=== PATIENT | female | born 1975 | race Caucasian/White ===

== ENCOUNTER → 2017-01-12 | Outpatient (CLI) | payer BC ==
--- NOTE | 2017-01-12 18:57 | Diagnostic Imaging Report ---
Bilateral screening mammogram 2D views with tomosynthesis. The current study was also evaluated with a Computer Aided Detection (CAD) system. INDICATION: Screening. No current complaints stated on the questionnaire. COMPARISON: 05/19/2012. FINDINGS: The breasts are composed of heterogeneously dense parenchyma which may decrease mammographic sensitivity. There is no mass, architectural distortion, or suspicious cluster of calcifications seen. Allowing for technique and positional differences, no suspicious change is seen. IMPRESSION: Dense breasts with no definite change. ACR BI-RADS Category 2: Benign findings. Result letter will be mailed to the patient. Note: At least 10% of breast cancer is not imaged by mammography. Dictated by: Dictated on workstation # [id number]
== END ==
LOC: RAD 09:35
PROVIDERS: ATTEND Nurse Practitioner
DX: Z12.31 Encounter for screening mammogram for malignant neoplasm of breast (principal)
CPT/HCPCS: 77067

== ENCOUNTER → 2017-01-25 | Outpatient (CLI) | payer BC | LOC: PREOP 05:40 | PROVIDERS: ATTEND Surgery | DX: Z01.818 Encounter for other preprocedural examination (principal); K62.5 Hemorrhage of anus and rectum ==

== ENCOUNTER 2017-01-28 06:36 | Day surgery (SDC) | payer BC ==
[~2017-01-28] VITALS: Ht 175.3 cm; Wt 103.4 kg
--- OUTSIDE RECORDS SUMMARY | 2017-01-28 06:39 | XMS REPORT ---
Author Author Edna Head [facility] Address [address] [place], [place] [id number] Care Team Providers Care Energy Technician Name Role Phone Euniceangyarmando Edna Hernandez PCP [phone] Eunicetuanluis fernandoEdnaMonisha PreferredProvider [phone] Allergies and Adverse Reactions Name Reaction Notes No known allergies Plan of Treatment Not available. Medications Active Name Start Date Estimated Completion Date SIG Comments Prilosec OTC 20 mg oral tablet,delayed release (DR/EC) take 1 tablet by oral route daily lisinopril 20 mg oral tablet take 1 tablet (20 mg) by oral route once daily Name Start Date Expiration Date SIG Comments neomycin-polymyxin B-dexameth 3.5mg/mL-10,000 unit/mL-0.1 % ophthalmic drops, suspension 04/28/2016 05/03/2016 INSTILL 2 GTTS LEFT EYE 3XD FOR 5DAYS Problem List Not available. Vital Signs Date Time BP-Sys(mm[Hg] BP-Eli(mm[Hg]) HR(bpm) RR(rpm) Temp WT HT HC BMI BSA BMI Percentile O2 Sat(%) 04/28/2016 2:36:00 PM 118 mmHg 68 mmHg 88 bpm 18 rpm 97.8 F 228.25 lbs 69 in 33.71 kg/m2 2.25 m2 98 % Social History Name Description Comments Tobacco Never smoker Alcohol Use - Rare History of Procedures Not available. Results Summary Not available. History Of Immunizations Not available. History of Past Illness Name Date of Onset Comments Acute bacterial conjunctivitis of left eye Apr 28 2016 2:37PM Corneal abrasion, left, initial encounter Apr 28 2016 2:37PM Payers Insurance Name Company Name Plan Name Plan Number Policy Number Policy Group Number [id number], 2016 [facility] [facility] [id number] N/A History of Encounters Visit Date Visit Type Provider 04/28/2016 Office visit Edna Head APPLICATION ARCHITECT MANAGER 01/02/2009 Laboratory Brandin Lew MD
--- OUTSIDE RECORDS SUMMARY | 2017-01-28 06:39 | XMS REPORT ---
Author Author Edna Head [facility] Address [address] [place], [place] [id number] Care Team Providers Care Laundry Operator Name Role Phone EunicetuanEdna gould PCP [phone] AdileneEdnaMonisha PreferredProvider [phone] Allergies and Adverse Reactions Name Reaction Notes No known allergies Plan of Treatment Not available. Medications Active Name Start Date Estimated Completion Date SIG Comments Prilosec OTC 20 mg oral tablet,delayed release (DR/EC) take 1 tablet by oral route daily lisinopril 20 mg oral tablet take 1 tablet (20 mg) by oral route once daily Toprol XL 25 mg oral tablet extended release 24 hr 05/11/2016 06/10/2016 take 1 tablet (25 mg) by oral route once daily for 30 days Name Start Date Expiration Date SIG Comments neomycin-polymyxin B-dexameth 3.5mg/mL-10,000 unit/mL-0.1 % ophthalmic drops, suspension 04/28/2016 05/03/2016 INSTILL 2 GTTS LEFT EYE 3XD FOR 5DAYS Problem List Description Status Onset Benign essential hypertension Active 06/06/2016 Vital Signs Date Time BP-Sys(mm[Hg] BP-Eli(mm[Hg]) HR(bpm) [...] Past Illness Name Date of Onset Comments Benign essential hypertension 06/06/2016 Acute bacterial conjunctivitis of left eye Apr 28 2016 2:37PM Corneal abrasion, left, initial encounter Apr 28 2016 2:37PM Benign essential hypertension Apr 28 2016 2:37PM Payers Insurance Name Company Name Plan Name Plan Number Policy Number Policy Group Number Start Date [id number] Friday, 2016 Preferred Health Care [facility] [id number] N/A History of Encounters Visit Date Visit Type Provider 04/28/2016 Office visit Edna Head FLOWER CHENILLER 01/02/2009 Laboratory Brandin Lew MD
--- OUTSIDE RECORDS SUMMARY | 2017-01-28 06:39 | XMS REPORT ---
Author Author Edna Head [facility] Address [address] [place], [place] [id number] Care Team Providers Care Music Supervisor Name Role Phone Edna Head PCP [phone] AdileneEdnaMonisha PreferredProvider [phone] Allergies and Adverse Reactions Name Reaction Notes [...] Number Policy Group Number Start Date [employer]BS [facility] [employer] [facility] [id number] Friday, 2016 Pref[employer] [id number] N/A History of Encounters Visit Date Visit Type Provider 04/28/2016 Office visit Edna Head TOPSTITCHER ZIGZAG 01/02/2009 Laboratory Brandin Lew MD
--- OUTSIDE RECORDS SUMMARY | 2017-01-28 06:39 | XMS REPORT | Continuity of Care Document ---
Author Author [facility] Organization [facility] Address Unknown Phone Unavailable Allergies Medications Problems Procedures Results Encounters ACCT No. Visit Date/Time Discharge Status Pt. Type Provider Facility Loc./Unit Complaint [id number] 12/30/2016 15:35:50 12/30/2016 23: 59:59 [facility] Outpatient Kierra Head [id number] 04/28/2016 14:49:53 04/28/2016 23: 59:59 [facility] Outpatient Kierra Head
--- OUTSIDE RECORDS SUMMARY | 2017-01-28 06:39 | XMS REPORT ---
Author Author Edna Head [facility] Address [address] [place], [place] [id number] Care Team Providers Care Rn Intern Name Role Phone Edna Head PCP [phone] Edna Head PreferredProvider [phone] Allergies and Adverse Reactions Name Reaction Notes No known allergies Plan of Treatment Not available. Medications Active Name Start Date Estimated Completion Date SIG Comments Prilosec OTC 20 mg oral tablet,delayed release (DR/EC) take 1 tablet by oral route daily Trintellix 10 mg oral tablet 06/16/2016 09/14/2016 take 1 tablet (10 mg) by oral route once daily at the same time each day for 30 days Benicar 20 mg oral tablet 06/16/2016 07/16/2016 take 1 tablet (20 mg) by oral route once daily for 30 days Name Start Date Expiration Date SIG Comments neomycin-polymyxin B-dexameth 3.5mg/mL-10,000 unit/mL-0.1 % ophthalmic drops, suspension 04/28/2016 05/03/2016 INSTILL 2 GTTS LEFT EYE 3XD FOR 5DAYS Toprol XL 25 mg oral tablet extended release 24 hr 05/11/2016 06/10/2016 take 1 tablet (25 mg) by oral route once daily for 30 days Discontinued Name Start Date Discontinued Date SIG Comments lisinopril 20 mg oral tablet 06/16/2016 take 1 tablet (20 mg) by oral route once daily Problem List Description Status Onset Benign essential [...] Benign essential hypertension Apr 28 2016 2:37PM HTN (hypertension), benign Jun 16 2016 11:57AM Anxiety disorder, unspecified Jun 16 2016 11:57AM Major depressive disorder, single episode, unspecified Jun 16 2016 11:57AM Payers Insurance Name Company Name Plan Name Plan Number Policy Number Policy Group Number Start Date [facility] [id number] Friday, 2016 [employer] [id number] N/A History of Encounters Visit Date Visit Type Provider 04/28/2016 Office visit Edna Head APRN 01/02/2009 Laboratory Brandin Lew MD
[2017-01-28] MEDS ORDERED: LACTATED RINGERS 1,000 ML IV STA (08:07)
[2017-01-28 08:28] VITALS: BP 129/88
[2017-01-28] MEDS ORDERED: OMEP20TA7 PO (08:51)
[2017-01-28] MEDS ORDERED: OLME20TA22 PO (08:51)
[2017-01-28] MEDS ORDERED: MIDAZOLAM 2 MG/2 ML (VERSED) VIAL ONE (09:15)
[2017-01-28] MEDS ORDERED: proPOfol 200 MG/20 ML (DIPRIVAN) VIAL IV ONE ×2 (09:15→09:27)
--- NOTE | 2017-01-28 09:25 | Progress Note-Pre Operative ---
Pre-Operative Progress Note H&P Reviewed The H&P was reviewed, patient examined and no changes noted. Time Seen by Provider: 09:23 Date H&P Reviewed: Jan 28, 2017 Time H&P Reviewed: 09:24 Pre-Operative Diagnosis: Rectal Bleed probably secondary to fissure, anal pain MING BRICE DO Jan 28, 2017 09:25
[2017-01-28 10:05] VITALS: BP 105/55
--- NOTE | 2017-01-28 10:08 | Progress Note-Post Operative ---
Post-Operative Progess Note Surgeon (s)/Aquaculture And Fisheries Professor (s) Surgeon MING BRICE DO Aquaculture And Fisheries Professor: none Pre-Operative Diagnosis Rectal Bleed probably secondary to fissure, anal pain Post-Operative Diagnosis Colon ulcer Diverticula internal hemorrhoids Anal fissure Procedure & Operative Findings Date of Procedure 01/28/17 Procedure Performed/Findings Colon with cold bx Anesthesia Type IV sedation by HTML WEB DEVELOPER Estimated Blood Loss Estimated blood loss (mL): scant Specimens/Packing Specimens Removed Descending colon bx MING BRICE DO Jan 28, 2017 10:08
--- NOTE | 2017-01-28 10:10 | Endoscopy Discharge Instruct ---
Endo Procedure/Findings Findings 1.: Other Findings (colon ulcer) 2.: Diverticulosis 3.: Internal Hemorrhoids 4.: Other Findings (Anal fissure) Discharge Instructions - Activity: You might feel a little sleepy until tomorrow. This is due to the medicine you received to relax you. Until tomorrow, you should: NOT drive a car, operate machinery or power tools. NOT drink any alcoholic beverages. NOT make any important decisions or sign importortant papers. Do not return to work until tomorrow, unless otherwise instructed. Resume previous activities tomorrow. Diet: Start by taking liquids. If you tolerate liquids, advance to solid food. make appointment for one week Instructions: 1.: Colonscopy in 10 years Notify Physician - If you experience excessive bleeding, unusual abdominal pain, fever, or chest pain, contact your doctor immediately. [phone] Follow-Up: - I have received and understand the above instructions and will call my doctor if I have any further questions. Patient Signature Date Nurse Signature Other (Relationship) MING BRICE DO Jan 28, 2017 10:10
[2017-01-28 10:35] VITALS: BP 119/77
[2017-01-28 11:08] VITALS: BP 119/77
--- NOTE | 2017-01-28 19:47 | OPERATIVE REPORT ---
DATE OF SERVICE: PREOPERATIVE DIAGNOSES: Anal pain, rectal bleed, possible fissures, hemorrhoids. POSTOPERATIVE DIAGNOSES: 1. Colon ulcer. 2. Diverticula. 3. Internal hemorrhoids. 4. Anal fissure. 5. Rectal bleed. PROCEDURE: Colonoscopy with cold biopsy. SURGEON: Dr. Pedraza. IRRIGATION MANAGER: None. ANESTHESIA: IV sedation by the BUNCH MAKER HAND. SPECIMEN: Biopsy of the colon ulcer. BLOOD LOSS: Scant. FLUIDS: Per anesthesia. POSTOPERATIVE CONDITION: Stable. INDICATION FOR PROCEDURE: The patient is a 41-year-old female who has been complaining of rectal pain and bleeding think she has fissures and possibly hemorrhoids and needed to get this worked up. FINDINGS: The patient had a colon ulcer in the descending colon. She also had some diverticula in the sigmoid and descending colon as well as a couple on the right side and looked like possibly around the cecal area, noted to have grade probably 1 to 2 internal hemorrhoids and anal fissure. PROCEDURE NOTE: After informed consent was obtained, the patient was brought to the endoscopy suite, placed in the bed in the left lateral decubitus position. She was administered IV sedation by the BUNCH MAKER HAND who then monitored her vitals the entire time. Colonoscope was inserted, pushed all the way to about 150 cm, able to go all the way to the cecum. On the way in, noted some diverticula. Pictures were taken and then noted a colon ulcer, took a picture of this and then did a cold biopsy, continued to the cecum, took a picture of the appendiceal orifice, noted the ileocecal valve as well as another diverticulum on this side and then slowly withdrew the scope insufflating to look circumferentially at the franklin, looking at the cecum, up the ascending colon to the hepatic flexure, then down the transverse colon to the splenic flexure, into the descending colon and down into the sigmoid and finally into the rectum, retroflexed and rectal vault, saw some pretty large internal hemorrhoids and possibly even some anal crypts, took a picture of this and then slowly withdrew the scope. On the way out, took a picture of what it looked like an anal fissure. Also tried to damien the anus with the scope, removed it to see this anal fissure. She also had a tight anal sphincter. The scope was removed. The patient tolerated the procedure and she was recovered in endoscopy suite. Job ID: [id number] DocumentID: [id number] Dictated Date: 01/28/2017 10:35:03 Licensing Analyst Date: 01/28/2017 19:46:09 Dictated By: MING PEDRAZA DO
== END 2017-01-28 10:40 | disposition home or self-care (01) ==
LOC: ENDO 06:36
PROVIDERS: ATTEND Surgery
DX: K52.9 Noninfective gastroenteritis and colitis, unspecified (principal); K57.30 Diverticulosis of large intestine without perforation or abscess without bleeding; K64.8 Other hemorrhoids; K60.2 Anal fissure, unspecified; I10 Essential (primary) hypertension; K21.9 Gastro-esophageal reflux disease without esophagitis; E66.9 Obesity, unspecified; Z68.33 Body mass index [BMI] 33.0-33.9, adult; Z79.899 Other long term (current) drug therapy
CPT/HCPCS: 84703